=== PATIENT | female | born 1940 | race Caucasian/White ===

== ENCOUNTER 2018-05-11 12:08 | Emergency (ER) | payer OTHER ==
[~2018-05-11] VITALS: Ht 149.9 cm; Wt 76.7 kg
[2018-05-11 12:15] VITALS: Ht 149.9 cm; Wt 76.7 kg
[2018-05-11 13:00] LABS: BASOPHIL % 0.3 % (0-2); PLATELET COUNT 307 x10^3mcL (130-400); RED CELL DISTRIBUTION WIDTH 14.5 % (11.5-14.5)
[2018-05-11 13:09] LABS: CARBON DIOXIDE 24.4 mmol/L (21-32); CHLORIDE SERUM 105 mmol/L (98-107); CREATININE SERUM 1.2 mg/dL (0.6-1.0); GLUCOSE SERUM 120 mg/dL (74-106); POTASSIUM SERUM 3.7 mmol/L (3.5-5.1); SODIUM SERUM 141 mmol/L (136-145)
[2018-05-11 13:13] LABS: ALBUMIN 3.7 g/dL (3.4-5.0); ALKALINE PHOSPHATASE 101 U/L (46-116); AST/SGOT 19 U/L (15-37); BILIRUBIN TOTAL 0.67 mg/dL (0.20-1.00); TOTAL PROTEIN, SERUM 7.9 g/dL (6.4-8.2)
[2018-05-11 13:14] LABS: CHOLESTEROL 216 mg/dL (<200)
[2018-05-11 13:25] LABS: ALT/SGPT 17 U/L (14-59)
[2018-05-11 15:38] VITALS: BP 176/86
== END 2018-05-11 15:38 | disposition short-term general hospital (02) ==
LOC: ED 12:08
PROVIDERS: Specialist
DX: G45.9 Transient cerebral ischemic attack, unspecified (principal); I10 Essential (primary) hypertension; Z90.710 Acquired absence of both cervix and uterus
CPT/HCPCS: 36415; G0480; Q0092